=== PATIENT | female | born 1975 | race Caucasian/White ===

== ENCOUNTER 2019-08-27 03:11 | Observation (INO) | payer SELFPAY ==
--- NOTE | 2019-08-27 02:57 | RADIOLOGY REPORT (SQ) ---
CT head without contrast on 08/27/2019 2:09 AM CLINICAL INDICATION: Stroke TECHNIQUE: Multiple axial images are obtained throughout the head without the administration of contrast. This exam was performed according to our departmental dose-optimization program, which includes automated exposure control, adjustment of the mA and/or kV according to patient size and/or use of iterative reconstruction technique. Total DLP is 1176.79 mGy*cm. COMPARISON: None FINDINGS: There is no hydrocephalus. There is no CT evidence of acute infarct. There is no hemorrhage. There are no abnormal extra-axial fluid collections. There is no mass, mass effect or midline shift. No bony abnormality is noted. IMPRESSION: No acute intracranial abnormality.
[2019-08-27] MEDS ORDERED: ASPIRIN 325 MG TABLET PO ONE (03:35)
--- NOTE | 2019-08-27 04:03 | RADIOLOGY REPORT (SQ) ---
EXAM DESCRIPTION: XR CHEST 1 VIEW COMPLETED DATE/TME: 08/27/2019 02:53 CLINICAL HISTORY: 44 years Female, htn COMPARISON: None. NUMBER OF VIEWS/TECHNIQUE: 1/AP FINDINGS: Adequate lung volume, clear parenchyma, normal cardiac silhouette, and intact bony thorax. IMPRESSION: No acute cardiopulmonary findings.
[2019-08-27] MEDS ORDERED: ACETAMINOPHEN 325 MG TABLET PO PRN (04:57)
[2019-08-27] MEDS ORDERED: DOCUSATE SODIUM 100 MG CAPSULE PO PRN (04:57)
[2019-08-27] MEDS ORDERED: MAGNESIUM HYDROXIDE SUSP 30 ML UDCUP PO PRN (04:57)
[2019-08-27] MEDS: HEPARIN SOD (PORCINE) 5,000 UNIT/ML 1 ML VIAL SUBCUT SCH ×3 (06:27→21:21)
--- NOTE | 2019-08-27 06:55 | PDOC H&P ---
History of Present Illness Admission Date/PCP: 08/27/19 05:19 Patient complains of: Headache and right-sided numbness History of Present Illness: KIM VALDEZ is a 44 year old female with a past medical history of obesity, hypertension, hypercholesterolemia without treatment and tobacco dependence. She presents with 6 hours of headache prompting her to take Naprosyn after falling asleep she awoke with right-sided facial numbness and tingling and on attempting to stand she felt dizzy towards the right side. Initial episode lasted approximately 5 minutes and it recurred approximately 10 minutes but resolved spontaneously without intervention. She denies new medications, previous episode, palpitations, difficulty with speech, confusion or focal weakness. In the emergency department she has an unremarkable work-up and is referred to the hospitalist for admission. Past Medical History Cardiac Medical History: Reports: Hyperlipidema, Hypertension Pulmonary Medical History: Reports: None Renal/ Medical History: Reports: None Malignancy Medical History: Reports: None GI Medical History: Reports: None Psychiatric Medical History: Reports: Tobacco Dependency Social History Smoking Status: Current Every Day Smoker Cigarettes Packs Per Day: 1 Number of Years Smokin Frequency of Alcohol Use: Rare Drugs: None - Advance Directive Resuscitation Status: Full Code Family History Family History: None Parental Family History Reviewed: Yes Children Family History Reviewed: Yes Sibling(s) Family History Reviewed.: Yes Medication/Allergy Allergies/Adverse Reactions: No Known Allergies Allergy (Verified 08/27/19 03:45) Review of Systems Constitutional: ABSENT: chills, fever(s), headache(s), weight gain, weight loss Eyes: ABSENT: visual disturbances Ears: ABSENT: hearing changes Cardiovascular: ABSENT: chest pain, dyspnea on exertion, edema, orthropnea, palpitations Respiratory: ABSENT: cough, hemoptysis Gastrointestinal: ABSENT: abdominal pain, constipation, diarrhea, hematemesis, hematochezia, nausea, vomiting Genitourinary: ABSENT: dysuria, hematuria Musculoskeletal: ABSENT: joint swelling Integumentary: ABSENT: rash, wounds Neurological: ABSENT: abnormal gait, abnormal speech, confusion, dizziness, focal weakness, syncope Psychiatric: ABSENT: anxiety, depression, homidical ideation, suicidal ideation Endocrine: ABSENT: cold intolerance, heat intolerance, polydipsia, polyuria Hematologic/Lymphatic: ABSENT: easy bleeding, easy bruising Physical Exam Vital Signs: Temp Pulse Resp BP Pulse Ox 66 18 134/93 H 97 08/27/19 03:13 08/27/19 06:02 08/27/19 06:02 08/27/19 06:02 Intake & Output 08/25/19 08/26/19 08/27/19 11:59 11:59 11:59 Weight 106.1 kg General appearance: PRESENT: no acute distress, well-developed, well-nourished Head exam: PRESENT: atraumatic, normocephalic Eye exam: PRESENT: conjunctiva pink, EOMI, PERRLA. ABSENT: scleral icterus Ear exam: PRESENT: normal external ear exam Mouth exam: PRESENT: moist, tongue midline Neck exam: ABSENT: carotid bruit, JVD, lymphadenopathy, thyromegaly Respiratory exam: PRESENT: clear to auscultation johnny. ABSENT: rales, rhonchi, wheezes Cardiovascular exam: PRESENT: RRR. ABSENT: diastolic murmur, rubs, systolic murmur Pulses: PRESENT: normal dorsalis pedis pul Vascular exam: PRESENT: normal capillary refill GI/Abdominal exam: PRESENT: normal bowel sounds, soft. ABSENT: distended, guarding, mass, organolmegaly, rebound, tenderness Rectal exam: PRESENT: deferred Extremities exam: PRESENT: full ROM. ABSENT: calf tenderness, clubbing, pedal edema Neurological exam: PRESENT: alert, awake, oriented to person, oriented to place, oriented to time, oriented to situation, CN II-XII grossly intact. ABSENT: motor sensory deficit Psychiatric exam: PRESENT: appropriate affect, normal mood. ABSENT: homicidal ideation, suicidal ideation Skin exam: PRESENT: dry, intact, warm. ABSENT: cyanosis, rash Assessment and Plan - Diagnosis (1) TIA (transient ischemic attack) Is this a current diagnosis for this admission?: Yes Plan: CVA care set deployed IMCU observation, telemetry monitoring, follow-up lipid profile, TSH, carotid Doppler and MRI. (2) Dyslipidemia Is this a current diagnosis for this admission?: Yes Plan: Follow-up lipid profile, empiric Lipitor. (3) Tobacco abuse Is this a current diagnosis for this admission?: Yes Plan: Education, cessation counseling, nicotine replacement options discussed (4) Obesity Is this a current diagnosis for this admission?: Yes Plan: Follow-up TSH. - Time Time Spent with patient: 25-34 minutes - Inpatient Certification Medical Necessity: Need Close Monitoring Due to Risk of Patient Decompensation
[2019-08-27] MEDS: ASPIRIN 81 MG TABLET, ENT COATED PO SCH (10:38)
[2019-08-27 11:01] LABS: CHOLESTEROL 278.39 mg/dL (0-200); TRIGLYCERIDES 341 mg/dL (<150)
--- NOTE | 2019-08-27 11:02 | RADIOLOGY REPORT (SQ) ---
EXAM DESCRIPTION: CAROTID DOPPLER COMPLETED DATE/TIME: 08/27/2019 9:01 am REASON FOR STUDY: tia COMPARISON: None. TECHNIQUE: Grayscale ultrasound, Doppler velocity and spectra, and color Doppler images acquired of the extra-cranial carotid and vertebral arteries. Images stored on PACS. LIMITATIONS: None. FINDINGS: RIGHT CAROTID CCA Velocities: Within normal limits. Right common carotid artery peak systolic velocity 0.76 m/sec ICA Velocities Peak systolic 0.76 m/s. End diastolic 0.13 m/s. Proximal ICA/CCA peak systolic ratio 1.0. Spectra normal. No significant plaque. Less than 50% diameter narrowing LEFT CAROTID CCA Velocities: Within normal limits. Left common carotid artery peak systolic velocity 1.1 m/sec ICA Velocities Peak systolic 1.2 m/s. End diastolic 0.55 m/s. Proximal ICA/CCA peak systolic ratio 1.2. Left carotid bifurcation is deep in the neck, difficult to visualize. There is elevation of proximal left ICA velocities suggesting 50 to 69% diameter narrowing. VERTEBRAL ARTERIES: Antegrade flow. Normal waveforms. SUBCLAVIAN ARTERIES: Not evaluated. OTHER: No other significant finding. IMPRESSION: Elevated velocities left proximal internal carotid artery suggest 50 to 69% narrowing at the left carotid bifurcation No flow significant stenosis at the right carotid bifurcation. Antegrade pulsatile vertebral artery flow bilaterally. COMMENT: Quality ID #[id number]: Velocity criteria are extrapolated from the diameter data as defined by t he Society of Radiologists in Ultrasound Consensus Conference. Radiology 2003: 229; 340-346. TECHNICAL DOCUMENTATION: JOB ID: [id number] [employer]- All Rights Reserved Reading location - IP/workstation name: [email or web address]
[2019-08-27 11:12] LABS: DIRECT LDL 189 mg/dL (<100)
[2019-08-27 11:13] LABS: VLDL CHOLESTEROL 68.2 mg/dL (10-31)
[2019-08-27 11:22] LABS: FREE T3 2.29 pg/mL (2.77-5.27); FREE T4 (FREE THYROXINE) 0.67 ng/dL (0.78-2.19)
[2019-08-27] MEDS ORDERED: INFLUENZA QUAD (6MOS+) 2019-20 VAC 0.5 ML SYR IM ONE (13:00)
--- NOTE | 2019-08-27 13:02 | EKG REPORT ---
SEVERITY:- ABNORMAL ECG - SINUS RHYTHM NONSPECIFIC T ABNORMALITIES, ANTERIOR LEADS : Confirmed by: Beth Sebastian 27-Aug-2019 13:01:18
[2019-08-27] MEDS ORDERED: LEVOTHYROXINE SODIUM 0.15 MG TABLET PO ONE ×2 (15:00→18:30)
[2019-08-27] MEDS ORDERED: NICOTINE 14 MG/24 HR PATCH.TD24 TD PRN (17:41)
[2019-08-27] MEDS ORDERED: ATORVASTATIN CALCIUM 80 MG TABLET PO SCH (22:00)
[2019-08-28] MEDS: HEPARIN SOD (PORCINE) 5,000 UNIT/ML 1 ML VIAL SUBCUT SCH (05:32)
[2019-08-28] MEDS ORDERED: LEVOTHYROXINE SODIUM 0.15 MG TABLET PO SCH (06:00)
[2019-08-28] MEDS: ASPIRIN 81 MG TABLET, ENT COATED PO SCH (10:16)
--- NOTE | 2019-08-28 11:46 | PDOC DISCHARGE SUMMARY ---
Impression - Admit/DC Date/PCP Admission Date/Primary Care Provider: 08/27/19 05:19 Discharge Date: 08/28/19 - Discharge Diagnosis (1) TIA (transient ischemic attack) Is this a current diagnosis for this admission?: Yes (2) Left carotid stenosis Is this a current diagnosis for this admission?: Yes (3) Dyslipidemia Is this a current diagnosis for this admission?: Yes (4) Obesity Is this a current diagnosis for this admission?: Yes (5) Tobacco abuse Is this a current diagnosis for this admission?: Yes (6) Hypothyroidism Is this a current diagnosis for this admission?: Yes - Assessment Summary: Patient was admitted for monitoring after suspected TIA. Her episode of right facial paresthesias as well as right paresthesias was transient and not resolved at time of encounter. Head CT was negative. Of note patient has 2 different record charts for this hospitalization only due to an administrative error. Admissions department notified about this and not working to resolve the issue. Regarding patient, CBC and metabolic panel were unimpressive. Hemoglobin A1c was normal. Patient was placed on telemetry and after 24 hours no evidence of atrial fibrillation noted. Carotid ultrasound revealed noncritical carotid stenosis in the left internal carotid artery of about 50 to 69% and then does not require surgical or neurovascular intervention. It is possible that this plaque might have played a role he had a TIA. Lipid panel revealed significant dyslipidemia with elevated triglycerides and total cholesterol as well as an LDL of 189. Patient has been started on baby aspirin and high-dose atorvastatin. Patient has also been newly acutely diagnosed with hypothyroidism with low free T and T4 levels and elevated TSH. She has been started on 0.15 mg of Synthroid based on a weight-based calculation. Patient has been discharged in stable conditions to follow-up with the [facility]. Patient has been counseled against smoking. - Additional Information Resuscitation Status: Full Code Discharge Diet: Regular Discharge Activity: Activity As Tolerated Referrals: [facility] [Provider Group] Prescriptions: Aspirin [Ecotrin 81 mg EC Tablet] 81 mg PO DAILY #30 tabec Atorvastatin Calcium [Lipitor 80 mg Tablet] 80 mg PO QHS #30 tablet Nicotine [Nicoderm 14 mg/24 Hr Transdermal Patch] 1 each TD DAILYP PRN #15 patch.td24 PRN Reason: Levothyroxine Sodium [Synthroid 0.15 mg Tablet] 0.15 mg PO Q6AM #30 tablet Home Medications: Aspirin [Ecotrin 81 mg EC Tablet] 81 mg PO DAILY #30 tabec 08/28/19 Atorvastatin Calcium [Lipitor 80 mg Tablet] 80 mg PO QHS #30 tablet 08/28/19 Levothyroxine Sodium [Synthroid 0.15 mg Tablet] 0.15 mg PO Q6AM #30 tablet 08/28/19 Nicotine [Nicoderm 14 mg/24 Hr Transdermal Patch] 1 each TD DAILYP PRN #15 patch.td24 08/28/19 History of Present Illiness History of Present Illness: KIM VALDEZ is a 44 year old female with a past medical history of obesity, hypertension, hypercholesterolemia without treatment and tobacco dependence. She presents with 6 hours of headache prompting her to take Naprosyn after falling asleep she awoke with right-sided facial numbness and tingling and on attempting to stand she felt dizzy towards the right side. Initial episode lasted approximately 5 minutes and it recurred approximately 10 minutes but resolved spontaneously without intervention. She denies new medications, previous episode, palpitations, difficulty with speech, confusion or focal weakness. In the emergency department she has an unremarkable work-up and is referred to the hospitalist for admission. Physical Exam Vital Signs: Temp Pulse Resp BP Pulse Ox 97.7 F 68 18 141/76 H 100 08/28/19 08:28 08/28/19 08:28 08/28/19 08:28 08/28/19 08:28 08/28/19 08:28 Intake & Output 08/27/19 08/28/19 08/29/19 06:59 06:59 06:59 Intake Total 2517 120 Balance 2517 120 Weight 106.1 kg 96.4 kg General appearance: PRESENT: no acute distress, cooperative Neurological exam: PRESENT: alert, awake, oriented to person, oriented to place, oriented to time, oriented to situation, CN II-XII grossly intact, motor sensory deficit. ABSENT: ataxia, aphasic Results Laboratory Results: Hemoglobin A1c % 5.5 % (4.7-6.0) 08/27/19 10:00 Triglycerides 341 mg/dL (<150) H 08/27/19 10:00 Cholesterol 278.39 mg/dL (0-200) H 08/27/19 10:00 LDL Cholesterol Direct 189 mg/dL (<100) H 08/27/19 10:00 VLDL Cholesterol 68.2 mg/dL (10-31) H 08/27/19 10:00 HDL Cholesterol 36 mg/dL (>40) L 08/27/19 10:00 Free T4 0.67 ng/dL (0.78-2.19) L 08/27/19 10:00 Free T3 pg/mL 2.29 pg/mL (2.77-5.27) L 08/27/19 10:00 Impressions: Carotid Doppler Study 08/27/19 04:58 IMPRESSION: Elevated velocities left proximal internal carotid artery suggest 50 to 69% narrowing at the left carotid bifurcation No flow significant stenosis at the right carotid bifurcation. Antegrade pulsatile vertebral artery flow bilaterally. Plan Time Spent: Less than 30 Minutes Stroke Is this a Stroke Patient?: No Acute Heart Failure - Is this a Heart Failure Patient?: No
[2019-08-28 13:25] VITALS: BP 121/78
== END 2019-08-28 13:25 | disposition home or self-care (01) ==
LOC: ER 03:11 → EH 05:19 → 3W 09:29 → UNDODISOB 08-28 13:25
PROVIDERS: ADMIT Internal Medicine; ATTEND Internal Medicine
DX: G45.9 Transient cerebral ischemic attack, unspecified (principal); I65.22 Occlusion and stenosis of left carotid artery; E78.5 Hyperlipidemia, unspecified; E66.9 Obesity, unspecified; E03.9 Hypothyroidism, unspecified; F17.210 Nicotine dependence, cigarettes, uncomplicated; Z79.899 Other long term (current) drug therapy; Z79.82 Long term (current) use of aspirin; Z86.79 Personal history of other diseases of the circulatory system; Z23 Encounter for immunization; R29.700 NIHSS score 0
CPT/HCPCS: 99285; 96372; 36415; 84439; 84481; 83036; 80061; 93880; 71045; 70450; 90686; 93005; 93010; G0378 ×3; J1644 ×2; J3490 ×2; 90471; G0008